=== PATIENT | female | born 1960 | race African-American/Black ===

== ENCOUNTER 2018-02-12 16:38 | Emergency (ER) | payer SELFPAY ==
[~2018-02-12] VITALS: Ht 170.2 cm; Wt 90.7 kg
[2018-02-12] MEDS ORDERED: LET TOPICAL SOLUTION 8 ML UDC TOP ONE (17:15)
[2018-02-12] MEDS ORDERED: SODIUM BICARBONATE 4.2 % (NEUT) 5 ML VIAL TP ONE (17:15)
[2018-02-12] MEDS ORDERED: LIDOCAINE HCL 2% 20 ML VIAL TP ONE (17:15)
[2018-02-12] MEDS ORDERED: LET TOPICAL SOLUTION 8 ML UDC ONE (17:23)
[2018-02-12] MEDS ORDERED: LIDOCAINE HCL 2% 20 ML VIAL ONE (17:24)
[2018-02-12] MEDS ORDERED: SODIUM BICARBONATE 4.2 % (NEUT) 5 ML VIAL ONE (17:24)
--- NOTE | 2018-02-12 17:29 | NUR ---
PT IS IN ROOM #2A. DR HARRIS EVALUATED THE PT.
[2018-02-12] MEDS ORDERED: ONDANSETRON ODT 4 MG TAB.RAPDIS SL ONE (18:45)
[2018-02-12] MEDS ORDERED: HYDROCODONE/APAP 5-325MG TABLET PO ONE (18:45)
[2018-02-12] MEDS ORDERED: NEOMY/BACITRA/POLYMYXIN B OINT UD PACKET TP ONE ×2 (18:45→18:59)
[2018-02-12] MEDS ORDERED: HYDROCODONE/APAP 5-325MG TABLET ONE (18:58)
[2018-02-12] MEDS ORDERED: ONDANSETRON ODT 4 MG TAB.RAPDIS ONE (18:58)
--- NOTE | 2018-02-12 19:12 | NUR ---
PT WAS D/C TO HOME. D/C INSTRUCTIONS GIVEN TO THE PT. DRESSING IS INTACT . NO BLEEDING.
[2018-02-12 19:15] VITALS: BP 142/85
== END 2018-02-12 19:15 | disposition home or self-care (01) ==
LOC: ER 16:40
DX: S61.301A Unspecified open wound of left index finger with damage to nail, initial encounter (principal); W23.0XXA Caught, crushed, jammed, or pinched between moving objects, initial encounter; Y93.89 Activity, other specified; Y92.89 Other specified places as the place of occurrence of the external cause; Y99.8 Other external cause status
CPT/HCPCS: 11760; 99284; A4663; J3490 ×2; Q0162

== ENCOUNTER 2018-02-14 17:11 | Emergency (ER) | payer SELFPAY ==
[~2018-02-14] VITALS: Ht 170.2 cm; Wt 90.7 kg
--- NOTE | 2018-02-14 17:57 | NUR ---
Rakesh burgos in [facility] - 02/14/18 at 1814 by MILDRED back to room post head ct
--- NOTE | 2018-02-14 18:14 | NUR ---
seen by Dr Farnsworth
[2018-02-14] MEDS ORDERED: NEOMY/BACITRA/POLYMYXIN B OINT UD PACKET TP ONE ×2 (18:15→18:35)
--- NOTE | 2018-02-14 18:42 | NUR ---
Patient discharged to home in stable conditon. Written and verbal after care instructions given. Patient verbalizes understanding of instructions.
[2018-02-14 18:43] VITALS: BP 148/78
== END 2018-02-14 18:44 | disposition home or self-care (01) ==
LOC: ER 17:12
DX: S61.301D Unspecified open wound of left index finger with damage to nail, subsequent encounter (principal); Z48.01 Encounter for change or removal of surgical wound dressing; X58.XXXD Exposure to other specified factors, subsequent encounter
CPT/HCPCS: 99283; A4217; A4663

== ENCOUNTER 2018-03-18 17:36 | Emergency (ER) | payer SELFPAY ==
[~2018-03-18] VITALS: Ht 170.2 cm; Wt 90.7 kg
[2018-03-18] MEDS ORDERED: SULFAMETH/TRIMETH 800/160 MG TABLET PO ONE (18:45)
[2018-03-18] MEDS ORDERED: SULFAMETH/TRIMETH 800/160 MG TABLET ONE (18:45)
--- NOTE | 2018-03-18 18:48 | NUR ---
MSE COMPLETED, BACTRIM ADMIN, PT D/C'D HOME, ACI/RX X1 DGIVEN, PT AMBULATED W/O DIFF/TOOK ALL BELONGINGS.
[2018-03-18 18:50] VITALS: BP 150/79
== END 2018-03-18 18:50 | disposition home or self-care (01) ==
LOC: ER 17:39
DX: S67.191D Crushing injury of left index finger, subsequent encounter (principal); Z48.01 Encounter for change or removal of surgical wound dressing; X58.XXXD Exposure to other specified factors, subsequent encounter
CPT/HCPCS: 99283; A4663